=== PATIENT | male | born 1930 | race Caucasian/White ===

== ENCOUNTER 2016-07-15 11:19 | Inpatient (IN) | payer MEDICARE, BC ==
[2016-07-15] VITALS (23 sets, daily range): BP systolic 74–114; RESP 16–33; TEMP 97.7; BMI 19.9; BMI 19.0
[~2016-07-15] VITALS: Ht 180.3 cm; Wt 61.6 kg
[2016-07-15] MEDS ORDERED: SODIUM CHLORIDE 0.9% 500 ML IV ONE (13:43)
[2016-07-15] MEDS ORDERED: ACETAMINOPHEN 325 MG TAB ONE (16:15)
[2016-07-15] MEDS ORDERED: SODIUM CHLORIDE 0.9% 1,000 ML ONE (16:15)
[2016-07-15] MEDS ORDERED: ACETAMINOPHEN 325 MG TAB PO PRN (17:10)
[2016-07-15] MEDS ORDERED: ONDANSETRON 4 MG VIAL IV PRN (17:10)
[2016-07-15] MEDS ORDERED: PIPERACIL/TAZO 2.25GM/50ML 50 ML IV SCH (17:10)
[2016-07-15] MEDS ORDERED: MAG HYDROX 30 ML UDC PO PRN (17:10)
[2016-07-15] MEDS ORDERED: ALU/MAG/SIM 30 ML UDC PO PRN (17:10)
[2016-07-15] MEDS ORDERED: SALINE FLUSH 10 ML FLUSH PRN (17:10)
[2016-07-15] MEDS ORDERED: PIPERACIL/TAZO 2.25GM/50ML 50 ML IV ONE (17:20)
[2016-07-15] MEDS: SALINE FLUSH 10 ML FLUSH SCH (20:17)
[2016-07-15] MEDS: SODIUM BICARB 8.4% 50 ML in SODIUM CHLORIDE 0.45% 1,000 ML IV SCH (20:18)
[2016-07-16] VITALS (41 sets, daily range): BP systolic 87–130; RESP 18–39; TEMP 96.9–98; Ht 180.3 cm; Wt 61.6 kg
[2016-07-16] MEDS: PIPERACIL/TAZO 2.25GM/50ML 50 ML IV SCH ×4 (00:05→23:09)
[2016-07-16] MEDS ORDERED: MISSING DOSE XX ONE (04:05)
[2016-07-16] MEDS: SODIUM BICARB 8.4% 50 ML in SODIUM CHLORIDE 0.45% 1,000 ML IV SCH (04:17)
[2016-07-16] MEDS: SODIUM CHLORIDE 0.9% FLUSH BAG 500 ML IV SCH (06:55)
[2016-07-16] MEDS: LEVOTHYROXINE 0.112 MG TAB PO SCH (06:55)
[2016-07-16] MEDS: PANTOPRAZOLE 40 MG TAB PO SCH (06:55)
[2016-07-16] MEDS: SALINE FLUSH 10 ML FLUSH SCH ×2 (08:00→20:00)
[2016-07-16] MEDS: SODIUM BICARB 8.4% 100 ML in DEXTROSE 5% 1,000 ML IV SCH (10:03)
[2016-07-16] MEDS ORDERED: CARDIZEM 1 MG/ML DRIP 125 ML IV SCH (15:05)
[2016-07-16] MEDS ORDERED: DIGOXIN 0.5 MG/2 ML AMP IV ONE (15:05)
[2016-07-16] MEDS ORDERED: MEGESTROL 800 MG/20 ML UDC PO ONE (20:50)
[2016-07-17] VITALS (18 sets, daily range): BP systolic 31–124; RESP 14–32; TEMP 96.5–98.2
[2016-07-17] MEDS ORDERED: MISSING DOSE XX ONE ×2 (06:25→06:30)
[2016-07-17] MEDS: SODIUM CHLORIDE 0.9% FLUSH BAG 500 ML IV SCH (06:26)
[2016-07-17] MEDS: SODIUM BICARB 8.4% 100 ML in DEXTROSE 5% 1,000 ML IV SCH (06:54)
[2016-07-17] MEDS: LEVOTHYROXINE 0.112 MG TAB PO SCH (06:55)
[2016-07-17] MEDS: PANTOPRAZOLE 40 MG TAB PO SCH (06:55)
[2016-07-17] MEDS: SALINE FLUSH 10 ML FLUSH SCH (08:28)
[2016-07-17] MEDS: PIPERACIL/TAZO 2.25GM/50ML 50 ML IV SCH ×2 (08:28→16:20)
[2016-07-17] MEDS ORDERED: MEGESTROL 800 MG/20 ML UDC PO SCH (09:00)
[2016-07-17] MEDS ORDERED: CALCIUM CHLORIDE 1,000 MG in SODIUM CHLORIDE 0.9% 100 ML IV ONE (20:15)
[2016-07-17] MEDS ORDERED: EPINEPHrine 1 MG/ML AMP IV PUSH ONE (20:15)
[2016-07-17] MEDS ORDERED: SOD BICARB 8.4% SYR 50 ML IV ONE ×3 (20:15)
[2016-07-17] MEDS ORDERED: SOD BICARB 8.4% SYR 50 ML ONE (20:16)
[2016-07-17] MEDS ORDERED: SODIUM BICARB 8.4% 150 ML in DEXTROSE 5% 1,000 ML IV SCH (20:40)
[2016-07-17] MEDS ORDERED: CALCIUM CHLORIDE 100 MG/ML SYR IV PUSH ONE ×3 (20:45→21:05)
[2016-07-17] MEDS ORDERED: CALCIUM CHLORIDE 2,000 MG in SODIUM CHLORIDE 0.9% 100 ML IV ONE (21:00)
[2016-07-17] MEDS ORDERED: VASOPRESSIN 40 UNITS in SODIUM CHLORIDE 0.9% 38 ML IV SCH (21:00)
[2016-07-17] MEDS ORDERED: EPINEPHrine 1:1,000 4 MG in SODIUM CHLORIDE 0.9% 250 ML IV SCH (21:00)
[2016-07-17] MEDS ORDERED: [UNRECOGNIZED DRUG - OTHER] XX ONE (22:00)
[2016-07-17] MEDS ORDERED: CRASH CART/CODE RESPONSE CHARGE XX ONE (22:00)
== END 2016-07-17 23:25 | disposition expired | DRG 871 ==
LOC: ENRESERVDT → ENRESERVTM → ER 11:19 → EMR 17:19 → CCU 18:33 → PCU 07-16 10:10 → CCU 07-17 20:01
PROVIDERS: ADMIT Internal Medicine; ATTEND Internal Medicine
PROC: 02HV33Z Insertion of Infusion Device into Superior Vena Cava, Percutaneous Approach (ICD-10-PCS; principal; 2016-07-17)
PROC: 03HY32Z Insertion of Monitoring Device into Upper Artery, Percutaneous Approach (ICD-10-PCS; 2016-07-17)
DX: A41.9 Sepsis, unspecified organism (principal); J69.0 Pneumonitis due to inhalation of food and vomit; I21.19 ST elevation (STEMI) myocardial infarction involving other coronary artery of inferior wall; J96.01 Acute respiratory failure with hypoxia; I50.41 Acute combined systolic (congestive) and diastolic (congestive) heart failure; N17.9 Acute kidney failure, unspecified; Q27.30 Arteriovenous malformation, site unspecified; D61.818 Other pancytopenia; Z68.1 Body mass index [BMI] 19.9 or less, adult; E87.2 Acidosis; I47.2 Ventricular tachycardia; E86.0 Dehydration; D46.9 Myelodysplastic syndrome, unspecified; N18.9 Chronic kidney disease, unspecified; R63.0 Anorexia; E03.9 Hypothyroidism, unspecified; E53.8 Deficiency of other specified B group vitamins; E55.9 Vitamin D deficiency, unspecified; R57.0 Cardiogenic shock; I35.0 Nonrheumatic aortic (valve) stenosis
CPT/HCPCS: 36415; 36430; 36600; 70450; 71010; 80048; 80051; 80053; 80061; 81001; 82330; 82553; 82803; 83605; 83735; 83880; 84100; 84439; 84443; 84484; 85025; 85379; 85610; 85730; 86850; 86900; 86901; 87040; 87088; 87493; 92950; 93005; 93306; 94002; 94799; 96361; 96374; 99255; 99292